=== PATIENT | female | born 2005 | race Caucasian/White ===

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

== ENCOUNTER 2024-03-12 15:35 | Emergency (ER) | payer OTHER ==
[~2024-03-12] VITALS: Ht 177.8 cm; Wt 74.8 kg
[~2024-03-12 15:35] MED LIST changes: +DOXY-690 PO; +IBUP-2213 PO
[2024-03-12 15:51] VITALS: BP 118/70; PULSE 79; RESP 16; TEMP 98.8; O2SAT 100
== END 2024-03-12 17:16 | disposition home or self-care (01) ==
LOC: MED 15:35
DX: R19.7 Diarrhea, unspecified (principal); Z79.899 Other long term (current) drug therapy
CPT/HCPCS: 99281